=== PATIENT | male | born 1970 | race Caucasian/White ===

== ENCOUNTER 2017-12-29 11:42 | Emergency (ER) | payer OTHER ==
[~2017-12-29] VITALS: Ht 177.8 cm; Wt 64.5 kg
[~2017-12-29 11:42] MED LIST: NAPROSYN500 MG PO
[2017-12-29] MEDS ORDERED: VALIUM5 MG PO (14:04)
[2017-12-29] MEDS ORDERED: LIDODERM 5% P1 PATCH TD (14:04)
[2017-12-29] MEDS ORDERED: MOTRIN800 MG PO (14:04)
[2017-12-29 14:25] VITALS: BP 127/64
== END 2017-12-29 15:15 | disposition home or self-care (01) ==
LOC: EME 11:42
DX: S16.1XXA Strain of muscle, fascia and tendon at neck level, initial encounter (principal); M62.838 Other muscle spasm; X50.9XXA Other and unspecified overexertion or strenuous movements or postures, initial encounter
CPT/HCPCS: 99281; 99284; J1885